=== PATIENT | male | born 1985 | race African-American/Black ===

== ENCOUNTER 2022-03-19 09:33 | Emergency (ER) | payer OTHER, SELFPAY ==
--- NOTE | 2022-03-19 09:38 | ED.URI ---
HPI - URI/Sore Throat General Chief Complaint: Upper Respiratory Infection Stated Complaint: SORE THROAT/CHILLS/BODY ACHES Time Seen by Provider: 03/19/22 09:39 Source: patient Mode of arrival: ambulatory Limitations: no limitations History of Present Illness HPI Narrative: Mr. Montejo is a 37-year-old male patient presenting to the clinic today with complaints of sore throat,fever, chills, and body aches times. He reports symptoms started early yesterday morning. Temperature of 38.2C today in the clinic. He denies any exposure to anyone with COVID, flu, or strep. He denies any ear pain, chest pain, shortness of breath, nausea, vomiting, or diarrhea. Related Data Home Medications Medication Instructions Recorded Confirmed No Home Medications 03/19/22 03/19/22 Allergies Allergy/AdvReac Type Severity Reaction Status Date / Time cholesterol med Allergy Unknown Uncoded 03/19/22 09:55 Review of Systems Review of Systems: Pertinent positives per HPI. Patient denies any fever, chills, rash, headache, visual changes, dizziness, cough, runny nose, sore throat, shortness of breath, chest pain, palpitations, nausea, vomiting, diarrhea, constipation, abdominal pain, or any urinary issues. PMFSH Comments At the time of my signature, I reviewed and agree with the nursing past medical, surgical, social, and family history. There is no relevant family history pertinent to the patient complaint. Exam Narrative: General: Well-developed, well nourished, in no apparent distress Head: Normocephalic, atraumatic Eyes: Pupils equally round and reactive to light bilaterally, EOM intact, sclera and conjunctive clear, no discharge, lids normal Ears: TMs intact and clear, ear canals ceruminous, no drainage, grossly hearing normal. Nose: Nares patent, no discharge, no inflammation, no sinus tenderness. Mouth: Oropharynx without lesions or masses, good dentition, MMM. Oropharynx red mildly swelling without tonsillar exudate Neck: Supple, trachea midline, no enlargement of anterior or posterior cervical nodes, no thyroid masses or goiter palpable. Cardio: Regular rate and rhythm, s1 and s2 normal, no murmur appreciated. Resp: Clear to auscultation bilaterally anteriorly and posteriorly, no rhonchi, rales, wheezing or rubs Course Course Emergency Course: Portions of this record may have been created with voice recognition software. Level of Care: Express Care Visit Vital Signs Vital signs: Vital signs reviewed MDM - URI/Sore Throat MDM Narrative Medical decision making narrative: At the time of visit patient is resting comfortably on the exam table. Strep screen, flu test, and COVID testing was obtained in the clinic and were negative. Strep culture and PCR COVID test obtained and sent to lab. Supportive measures were discussed with the patient he voiced understanding of discharge instructions and agrees to treatment plan. Differential Diagnosis Differential diagnosis: Likely upper respiratory infection, otitis media, sinusitis, viral infection, bronchitis, influenza, pharyngitis and other (COVID) Discharge Plan Discharge Clinical Impression: Viral syndrome Pharyngitis Qualifiers: Pharyngitis/tonsillitis etiology: unspecified etiology Qualified Code(s): J02.9 - Acute pharyngitis, unspecified Patient Disposition: Home, Self-Care Condition: Stable Instructions: Antibiotic Form, Pharyngitis (ED), Viral Syndrome (ED) Additional Instructions: Rapid COVID, influenza, and strep test was negative in the clinic today. Strep culture and COVID PCR test sent to lab Increase fluids and stay well hydrated Tylenol/motrin for pain/fever Flonase and OTC antihistamines as directed Vicks vapor rub to open sinuses Sinus rinses for congestion Cepacol spray, cough drops, throat lozenges, warm tea with honey/lemon, gargle salt water to soothe throat BRAT diet for diarrhea Clear liquids x 24 hours then advance as [place]
[2022-03-19 09:41] VITALS: BP 136/77; PULSE 94; RESP 16; TEMP 38.2; O2SAT 100
[2022-03-19 21:31] LABS: SARS-CoV-2 RNA PCR Negative
== END 2022-03-19 10:28 | disposition home or self-care (01) ==
PROVIDERS: Emergency Provider Nurse Practitioner Family
DX: B34.9 Viral infection, unspecified (principal); J02.9 Acute pharyngitis, unspecified; Z20.822 Contact with and (suspected) exposure to COVID-19; E78.00 Pure hypercholesterolemia, unspecified
CPT/HCPCS: 87081; 87426; 87804; 87880; 99213; C9803; G0463; U0003; U0005

== ENCOUNTER 2022-05-29 10:56 | Emergency (ER) | payer OTHER, SELFPAY ==
[2022-05-29 11:06] VITALS: BP 126/85; PULSE 73; RESP 16; TEMP 36.8; O2SAT 100
--- NOTE | 2022-05-29 11:56 | ED.URI ---
HPI - URI/Sore Throat General Chief Complaint: Upper Respiratory Infection Stated Complaint: SORE THROAT Time Seen by Provider: 05/29/22 11:56 History of Present Illness HPI Narrative: 37-year-old male presenting for complaint of ?mild? sore throat with minimal nasal drainage over the last 2 days. He endorses his toddler tested positive for RSV, and he has been the primary caregiver, as his is having a 2 days. He states he was told by the OBGYN to be tested for RSV prior to the surgery. Patient denies sinus pressure congestion, ear pain, cough, nausea vomiting, diarrhea, fever chills. Related Data Home Medications Medication Instructions Recorded Confirmed atorvastatin 20 mg tablet 20 mg PO DAILY 05/29/22 05/29/22 azelastine 137 mcg (0.1 %) nasal 1 spray intranasal DAILY 05/29/22 05/29/22 spray aerosol escitalopram oxalate 5 mg tablet 5 mg PO DAILY 05/29/22 05/29/22 fluticasone propionate 50 2 spray intranasal DIRECTED 05/29/22 05/29/22 mcg/actuation nasal spray,suspension levocetirizine 5 mg tablet 5 mg PO DAILY 05/29/22 05/29/22 pantoprazole 40 mg tablet,delayed 40 mg PO DAILY 05/29/22 05/29/22 release Allergies Allergy/AdvReac Type Severity Reaction Status Date / Time cholesterol med Allergy Unknown Uncoded 05/29/22 11:34 Review of Systems Review of Systems: CONSTITUTIONAL: Denies body aches, fever, chills, or sweats. EYES: Denies visual changes, redness, or discharge. ENT: per HPI. CARDIOVASCULAR: Denies chest pain, palpitations, or edema. RESPIRATORY: Denies dyspnea. GASTROINTESTINAL: Denies abdominal pain, nausea, vomiting, or diarrhea. SKIN: Denies rash, itching, or wounds. MUSCULOSKELETAL: Denies back pain, joint pain, or myalgia. NEUROLOGIC: Denies headache Exam Narrative: GENERAL: well-appearing EYES: conjunctivae clear ENT: Mucous membranes moist. TMs pearly mckeon with normal light reflex bilaterally; no tragal tenderness. Oropharynx normal without lesions. Tonsils enlarged 1+ without exudate. No drooling, no hoarseness, no trismus, uvula midline. No tripod positioning, hot potato voice, or soft palate swelling. NECK: Supple. No lymphadenopathy CHEST: Clear to auscultation, breath sounds equal. No respiratory distress, speaks in full sentences. HEART: Regular rate and rhythm. No murmur heard. SKIN: Warm, dry, no rash. NEURO: Alert and oriented x3. Course Course Emergency Course: Patient is aware of diagnosis, understands and agrees to treatment plan. Anticipatory guidance given. Patient agrees to follow-up as directed and is aware of reasons to seek care at the emergency department. Portions of this record may have been created with voice recognition software Level of Care: Express Care Visit Vital Signs Vital signs: Vital Signs Temperature 98.3 F 05/29/22 11:06 Pulse Rate 73 05/29/22 11:06 Respiratory Rate 16 05/29/22 11:06 Blood Pressure 126/85 05/29/22 11:06 Pulse Oximetry 100 05/29/22 11:06 Temperature 98.3 F 05/29/22 11:06 Pulse Rate 73 05/29/22 11:06 Respiratory Rate 16 05/29/22 11:06 Blood Pressure 126/85 05/29/22 11:06 Pulse Oximetry 100 05/29/22 11:06 MDM - URI/Sore Throat MDM Narrative Medical decision making narrative: Flu and RSV results reviewed with patient. Advise supportive treatments. Recommend closely monitoring symptoms and discuss with Obgyn before the procedure. Patient is appropriate for outpatient treatment and follow-up. Differential Diagnosis Differential diagnosis: Likely upper respiratory infection, viral infection and pharyngitis Lab Data Labs: Influenza A Screen Negative Reference Range: Negative Influenza B Screen Negative Reference Range: Negative RSV Negative (Reference Range: Negative)
== END 2022-05-29 12:27 | disposition home or self-care (01) ==
PROVIDERS: Emergency Provider Nurse Practitioner Family; PCP Internal Medicine
DX: J02.9 Acute pharyngitis, unspecified (principal)
CPT/HCPCS: 87420; 87804; 99213; G0463

== ENCOUNTER 2023-03-16 17:16 | Emergency (ER) | payer OTHER, SELFPAY ==
[2023-03-16 17:32] VITALS: BP 136/92; PULSE 77; RESP 16; TEMP 36.6; O2SAT 100
--- NOTE | 2023-03-16 18:03 | ED.URI ---
HPI - URI/Sore Throat General Chief Complaint: Upper Respiratory Infection Stated Complaint: BODY ACHES/SORE THROAT/EYE REDNESS Time Seen by Provider: 03/16/23 17:53 Source: patient and RN notes reviewed Mode of arrival: ambulatory Limitations: no limitations History of Present Illness HPI Narrative: Patient presents today with a 5 day history of body aches, sore throat, mild cough. Last night he developed redness and drainage from both eyes. Denies congestion, rhinorrhea, fever. He has been using TheraFlu with mild relief and currently rates his pain 08/27. Related Data Home Medications Medication Instructions Recorded Confirmed atorvastatin 20 mg tablet 20 mg PO DAILY 05/29/22 05/29/22 escitalopram oxalate 5 mg tablet 5 mg PO DAILY 05/29/22 05/29/22 levocetirizine 5 mg tablet 5 mg PO DAILY 05/29/22 05/29/22 pantoprazole 40 mg tablet,delayed 40 mg PO DAILY 05/29/22 05/29/22 release trazodone 50 mg tablet mg 03/16/23 triamcinolone acetonide 0.1 % applic topical 03/16/23 03/16/23 topical cream Allergies Allergy/AdvReac Type Severity Reaction Status Date / Time cholesterol med Allergy Unknown Uncoded 03/16/23 17:51 Review of Systems Review of Systems: CONSTITUTIONAL: Denies fever, chills, or sweats.+ body aches EYES: Denies visual changes. + bilateral eye redness and drainage ENT: Denies rhinorrhea, congestion, or otalgia.+ sore throat CARDIOVASCULAR: Denies chest pain, palpitations, or edema. RESPIRATORY: Denies dyspnea.+ cough GASTROINTESTINAL: Denies abdominal pain, nausea, vomiting, or diarrhea. GENITOURINARY: Denies dysuria or hematuria. SKIN: Denies rash, itching, or wounds. MUSCULOSKELETAL: Denies back pain, joint pain, or myalgia. NEUROLOGIC: Denies headache, numbness, tingling, or weakness. PSYCH: Denies depression or anxiety. [facility] Past Medical History Medical History (Updated 03/16/23 @ 18:07 by Aleja Zhang, [employer], ) GERD (gastroesophageal reflux disease) High cholesterol Comments At time of signature, I have reviewed and agree with nursing past medical, surgical, social and family history unless otherwise noted. Please see nursing chart for further information. There is no relevant family history pertinent to the presenting complaint Exam Narrative: GENERAL: Mildly ill-appearing, well-nourished, and in no acute distress. HEAD: Normocephalic, atraumatic. EYES: EOMI. Bilateral moderate injected conjunctiva with mild chemosis and mild green purulent discharge. Lids and lashes normal. ENT: Mucous membranes pink and moist. Nares clear. No rhinorrhea. TMs normal bilaterally. Throat normal. Uvula midline. NECK: Normal AROM. Supple. No lymphadenopathy. CHEST: No respiratory distress. Clear to auscultation. HEART: Regular rate and rhythm. No murmur appreciated. Normal peripheral pulses. EXTREMITIES: Normal range of motion. No edema. SKIN: Warm, dry, no rash. Capillary refill normal. Normal skin turgor. NEURO: No focal deficits. Alert and oriented x3. Gait steady. PSYCH: Normal affect. No signs of depression or anxiety. Course Course Level of Care: Express Care Visit Vital Signs Vital signs: Vital Signs Temperature 97.8 F 03/16/23 17:32 Pulse Rate 77 03/16/23 17:32 Respiratory Rate 16 03/16/23 17:32 Blood Pressure 136/92 H 03/16/23 17:32 Pulse Oximetry 100 03/16/23 17:32 Temperature 97.8 F 03/16/23 17:32 Pulse Rate 77 03/16/23 17:32 Respiratory Rate 16 03/16/23 17:32 Blood Pressure 136/92 H 03/16/23 17:32 Pulse Oximetry 100 03/16/23 17:32 Reviewed. Pt has been instructed to follow up with his PCP regarding his elevated blood pressure today. MDM - URI/Sore Throat MDM Narrative Medical decision making narrative: Rapid strep negative. Culture pending. Symptoms likely viral in etiology except the bacterial conjunctivitis bilaterally. Will treat with ofloxacin. Differential Diagnosis Differential diagnosis: Likely u
== END 2023-03-16 18:10 | disposition home or self-care (01) ==
PROVIDERS: Emergency Provider Nurse Practitioner; PCP Internal Medicine
DX: H10.33 Unspecified acute conjunctivitis, bilateral (principal); J06.9 Acute upper respiratory infection, unspecified; Z79.891 Long term (current) use of opiate analgesic
CPT/HCPCS: 87081; 87880; 99213; G0463

== ENCOUNTER 2023-04-28 09:08 | Emergency (ER) | payer OTHER, SELFPAY ==
[2023-04-28 09:14] VITALS: BP 145/89; PULSE 73; RESP 16; TEMP 36.7; O2SAT 100
--- NOTE | 2023-04-28 09:20 | ED.URI ---
HPI - URI/Sore Throat General Chief Complaint: Upper Respiratory Infection Stated Complaint: COUGH/CONGESTION/CHILLS/CHEST PAIN Time Seen by Provider: 04/28/23 09:20 Source: patient and RN notes reviewed Mode of arrival: ambulatory Limitations: no limitations History of Present Illness HPI Narrative: 38-year-old male presented for complaint of cough, sinus congestion, and chills for 4 days. Also reports intermittent sharp pains scattered to the chest and abdomen. States the pains are not only with coughing, they occur when at rest. States they are brief and resolve on their own. Denies sick contacts. Denies chest pain, palpitations, dizziness, shortness of breath, wheezing, nausea, vomiting, diarrhea, lethargy or fever. Taking Tylenol, ibuprofen, and Robitussin for symptoms. Tested negative for COVID twice since onset of symptoms. MD elicited complaint: cough Related Data Home Medications Medication Instructions Recorded Confirmed atorvastatin 20 mg tablet 20 mg PO DAILY 05/29/22 05/29/22 escitalopram oxalate 5 mg tablet 5 mg PO DAILY 05/29/22 05/29/22 levocetirizine 5 mg tablet 5 mg PO DAILY 05/29/22 05/29/22 pantoprazole 40 mg tablet,delayed 40 mg PO DAILY 05/29/22 05/29/22 release trazodone 50 mg tablet mg 03/16/23 triamcinolone acetonide 0.1 % applic topical 03/16/23 03/16/23 topical cream Allergies Allergy/AdvReac Type Severity Reaction Status Date / Time cholesterol med Allergy Unknown Uncoded 03/16/23 17:51 Review of Systems Review of Systems: CONSTITUTIONAL: Endorses malaise, chills, sweats, fever EYES: Denies visual changes, redness, or discharge ENT: Reports rhinorrhea, congestion, denies sinus pain, otalgia, sore throat CARDIOVASCULAR: Denies chest pain, palpitations, edema RESPIRATORY: Reports cough, post nasal drainage. Denies dyspnea GASTROINTESTINAL: Denies abdominal pain, nausea, vomiting, diarrhea SKIN: Denies rash or itching MUSCULOSKELETAL: Endorses myalgia NEUROLOGIC: Denies headache PMFSH Past Medical History Medical History GERD (gastroesophageal reflux disease) High cholesterol Exam Narrative: GENERAL: mildly Ill-appearing, nontoxic no acute distress. EYES: PERRLA, conjunctivae clear ENT: Mucous membranes moist. TMs pearly mckeon with dull light reflex bilaterally; no tragal tenderness. Oropharynx erythematous without lesions or exudate, no drooling, no hoarseness, no trismus, uvula midline. No tripod positioning, muffled voice, soft palate or pharyngeal wall bulging NECK: Supple. No lymphadenopathy CHEST: Clear to auscultation, breath sounds equal. No wheezing, rhonchi, rales, or stridor. Moist harsh densitometrist cough. No respiratory distress, speaks in full sentences. Palpation of left anterior chest illicited pain to left lateral chest. Left lateral chest tender with palpation. HEART: Regular rate and rhythm. No murmur heard. SKIN: Warm, dry, no rash. NEURO: Alert and oriented x3. PSYCH: Normal mood and affect Course Course Emergency Course: Patient is aware of diagnosis, understands and agrees to treatment plan. Anticipatory guidance given. Patient agrees to follow-up as directed and is aware of reasons to seek care at the emergency department. Portions of this record may have been created with voice recognition software Level of Care: Express Care Visit Vital Signs Vital signs: Vital Signs Temperature 98.1 F 04/28/23 09:14 Pulse Rate 73 04/28/23 09:14 Respiratory Rate 16 04/28/23 09:14 Blood Pressure 145/89 H 04/28/23 09:14 Pulse Oximetry 100 04/28/23 09:14 Temperature 98.1 F 04/28/23 09:14 Pulse Rate 73 04/28/23 09:14 Respiratory Rate 16 04/28/23 09:14 Blood Pressure 145/89 H 04/28/23 09:14 Pulse Oximetry 100 04/28/23 09:14 reviewed MDM - URI/Sore Throat MDM Narrative Medical decision making narrative: Influenza negative. Declines strep testing. Discusse
== END 2023-04-28 09:43 | disposition home or self-care (01) ==
PROVIDERS: Emergency Provider Nurse Practitioner Family; PCP Internal Medicine
DX: B34.9 Viral infection, unspecified (principal)
CPT/HCPCS: 87804; 99213; G0463

== ENCOUNTER 2023-09-11 08:52 | Emergency (ER) | payer OTHER, SELFPAY ==
[2023-09-11 09:01] VITALS: BP 118/82; PULSE 91; RESP 16; TEMP 37.2; O2SAT 99
--- NOTE | 2023-09-11 09:01 | ED.GENADULT ---
HPI - General Adult General Chief complaint: Upper Respiratory Infection Stated complaint: SORE THROAT/COUGH/SINUS CONGESTION Source: patient, RN notes reviewed and old records reviewed Mode of arrival: ambulatory Limitations: no limitations History of Present Illness HPI narrative: 38-year-old male patient presents to [facility] with complaint of cough, congestion, sinus pressure that started 2 weeks ago. Patient taking [id number] medications. Patient states symptoms have worsened and he is not having sinus pain, sore throat, green nasal discharge and productive cough. Patient denies chest pain, shortness of breath, dizziness, weakness. Related Data Home Medications Medication Instructions Recorded Confirmed atorvastatin 20 mg tablet 20 mg PO DAILY 05/29/22 09/11/23 Allergies Allergy/AdvReac Type Severity Reaction Status Date / Time iodine Allergy Rash Verified 09/11/23 09:05 Review of Systems Constitutional: Constitutional: Reports no additional constitutional complaints, Denies body ache(s), Denies chills, Denies fatigue, Denies fever(s) and Reports headache(s) Eyes: Eyes: Reports no additional eye complaints and Denies blurry vision ENT: Reports system reviewed and no additional complaints, except as documented, Denies vertigo, Denies dizziness, Denies ear discharge, Denies otalgia, Denies facial pain, Denies headache(s), Reports nasal congestion, Reports nasal discharge, Reports sinus pain, Reports sinus pressure and Reports sore throat Cardiovascular: Cardiovascular: Reports no additional cardiovascular complaints, Denies chest pain, Denies chest pain at rest, Denies rapid heart rate and Denies dyspnea Respiratory: Respiratory: Reports no additional respiratory complaints, Reports chest congestion, Reports cough, Denies pain on inspiration, Denies pain with cough and Denies dyspnea Gastrointestinal: Gastrointestinal: Denies abdominal pain, Denies diarrhea, Denies nausea and Denies vomiting Integumentary/Breasts: Skin/Breast: Denies rash Neurologic: Reports system reviewed and no additional complaints, except as documented, Denies vertigo, Denies dizziness and Denies headache(s) Endocrine: Endocrine: Denies fatigue [facility] Past Medical History Medical History GERD (gastroesophageal reflux disease) High cholesterol Comments At the time of my signature, I reviewed and agree with the nursing past medical, surgical, social, and family history. There is no relevant family history pertinent to the patient complaint. Exam Const: General: cooperative, healthy appearing, no acute distress and well nourished Nutritional Appearance: well nourished Orientation/consciousness: patient oriented x3 Limitations: no limitations HENMT: Head: normal to inspection and normocephalic Ears: external ears normal, TM's normal bilaterally, EAC's normal and mastoids normal Face/Nose/Sinus: Abnormal mucous membranes and turbinates present boggy bilateral and erythematous bilateral, normal facial exam and sinuses nontender Face and sinus: normal facial exam Mouth: Yes Normal oral and palatal mucosa present, Yes oropharynx normal and Yes moist mucous membranes Throat: tonsils normal, uvula midline, normal tonsils, no peritonsillar masses, posterior oropharynx abnormal, postnasal drainage and no uvular edema Eyes: General: appearance normal, both eyes and all related structures Sclera: sclerae normal Pupils: Equal, round and reactive pupils present Resp: Effort & Inspection: normal respiratory effort, able to speak in complete sentences, no audible wheezes, no cough, no respiratory distress and no retractions Auscultation: clear to auscultation bilaterally, no crackles, no rales, no rhonchi and no wheezes Cardio: Rate: regular rate Rhythm: regular rhythm Skin: General skin exam: normal color and no rashes or lesions noted Neuro: General: patient oriented x3 Crania
== END 2023-09-11 09:13 | disposition home or self-care (01) ==
PROVIDERS: Emergency Provider Registered Nurse; PCP Internal Medicine
DX: J01.90 Acute sinusitis, unspecified (principal); K21.9 Gastro-esophageal reflux disease without esophagitis; E78.00 Pure hypercholesterolemia, unspecified
CPT/HCPCS: 99213; G0463